=== PATIENT | female | born 1950 | race Caucasian/White ===

== ENCOUNTER 2024-04-12 05:59 | Emergency (ER) | payer MEDICARE, OTHER ==
[~2024-04-12] VITALS: Ht 157.5 cm; Wt 74.8 kg
[2024-04-12] MEDS ORDERED: DiphenhydrAMINE HCl 50 MG Cap PO ONE (06:35)
[2024-04-12] MEDS ORDERED: Dexamethasone Sod Phos 10 MG/ML 1ML VIAL PO ONE (06:55)
[2024-04-12 08:28] VITALS: BP 157/103
[2024-04-12] MEDS ORDERED: EPIPEN0.3 MG/0.3 IM (08:38)
== END 2024-04-12 08:40 | disposition home or self-care (01) ==
LOC: ER 05:59
DX: T78.3XXA Angioneurotic edema, initial encounter (principal); E03.9 Hypothyroidism, unspecified; Z91.018 Allergy to other foods
CPT/HCPCS: 99283; A9270; J1100